=== PATIENT | male | born 1955 | race Caucasian/White ===

== ENCOUNTER 2020-08-05 02:38 | Inpatient (IN) | payer BC ==
[~2020-08-05] VITALS: Ht 175.3 cm; Wt 101.6 kg
[~2020-08-05 02:38] MED LIST: CYCL10; Citalopram HBr40 MG PO; IBUP200 PO; Simvastatin40 MG PO; TRAZ100 PO; ZESTORETIC 20-1 EACH PO
[2020-08-05 03:01] LABS: Source, Urine Clean Catch
[2020-08-05 03:02] LABS: BASOPHILS ABSOLUTE AUTO 0.02 K/mm3 (0.00-0.23); BASOPHILS PERCENT AUTO 0 % (0-2); EOSINOPHILS PERCENT AUTO 0 % (0-6); Hematocrit 33.7 % (37.0-53.0); Hemoglobin 11.2 g/dL (13.5-17.5); IMMATURE GRAN ABSOLUTE AUTO 0.09 K/mm3 (0.00-0.10); IMMATURE GRAN PERCENT AUTO 1 % (0-1); LYMPHOCYTES ABSOLUTE AUTO 0.49 K/mm3 (0.84-5.20); LYMPHOCYTES PERCENT AUTO 4 % (21-46); MONOCYTES ABSOLUTE AUTO 0.86 K/mm3 (0.16-1.47); MONOCYTES PERCENT AUTO 6 % (4-13); Mean Corpuscular HGB Conc 33.2 g/dL (31.5-36.5); Mean Corpuscular Volume 96 fL (80-100); Mean Platelet Volume 9.1 fL (9.1-12.4); NEUTROPHILS ABSOLUTE AUTO 12.63 K/mm3 (1.96-9.15); NEUTROPHILS PERCENT AUTO 90 % (41-73); Platelet Count 270 K/mm3 (150-400); RDW Coefficient Variation 13.6 % (11.7-14.2); RDW Standard Deviation 47.8 fL (35.1-46.3); White Blood Cell Count 14.09 K/mm3 (4.00-11.30)
[2020-08-05 03:03] LABS: Bilirubin, Urine Neg (Neg); Blood, Urine 5+ (Neg); Glucose Qualitative, Urine Neg (Neg); Ketones, Urine Neg (Neg); Leukocyte Esterase, Urine Neg (Neg); Nitrite, Urine Neg (Neg); Protein, Urine 2+ (Neg); Specific Gravity, Urine 1.025 (1.003-1.022); Urobilinogen, Urine NORM (Normal)
[2020-08-05 03:09] LABS: Appearance, Urine Clear (Clear); Color, Urine Yellow (P-Yellow)
[2020-08-05 03:10] LABS: Red Blood Cells, Urine 0-2 /hpf (0-2)
[2020-08-05 03:11] LABS: Amorphous Mod (0-Heavy); Bacteria Mod /hpf; Hyaline Casts 25-50 /lpf (0-2); Mucus Light (0-Heavy); Squamous Epithelial Cells Not Seen /hpf (Few)
[2020-08-05 03:12] LABS: Calcium Oxalate Crystals Few /hpf
[2020-08-05 03:16] LABS: International Normalized Ratio 1.02
[2020-08-05 03:19] LABS: U Amphetamine Screen Not Detected; U Barbituate Screen Not Detected; U Benzodiazapine Screen Not Detected; U Buprenorphine Screen Not Detected; U Cannabinoids Screen Not Detected; U Cocaine Screen Not Detected; U Methadone Screen Not Detected; U Methamphetamine Screen Not Detected; U Opiates Screen Not Detected; U Oxycodone Screen DETECTED; U Phencyclidine Screen Not Detected; U Propoxyphene Screen Not Detected
[2020-08-05 03:23] LABS: Alanine Aminotransfer (ALT/SGP 34 U/L (12-78); Albumin/Globulin Ratio 0.7 (0.8-1.8); Alk Phos 86 U/L (50-136); Anion Gap 14 mmol/L (6-16); Aspartate Aminotrans (AST/SGOT 72 U/L (12-37); Bilirubin, Total 0.7 mg/dL (0.1-1.0); Blood Urea Nitrogen 67 mg/dL (8-24); Bun/Creatinine Ratio 11.1 (12.0-20.0); CO2, Blood 18 mmol/L (21-32); Calcium, Blood 8.9 mg/dL (8.5-10.1); Chloride, Blood 101 mmol/L (98-108); Creatinine, Blood 6.05 mg/dL (0.60-1.20); Ethanol (Alcohol), Blood, Med <3 mg/dL; Globulin, Blood 4.2 g/dL (2.2-4.0); Glomerular Filtration Rate 10 (60-); Glucose, Blood 143 mg/dL (70-99); Potassium, Blood 4.4 mmol/L (3.5-5.5); Sodium, Blood 133 mmol/L (136-145); Total Protein, Blood 7.2 g/dL (6.4-8.2)
[2020-08-05 03:59] LABS: Base Excess Venous -7.7 mmol/L; Bicarbonate Venous 18.6 mmol/L (24.0-30.0); PCO2 Venous 39.4 mmHg (38-42); PO2 Venous 130 mmHg (38-42); pH Blood Venous 7.29 (7.34-7.37)
[2020-08-05 05:02] LABS: CPK Creatine Kinase 3047 U/L (39-308)
--- NOTE | 2020-08-05 06:49 | NUR ---
ADMISSION PT ADMITTED TO THE FLOOR FROM THE ED. PT IS AWAKE, SPEECH IS GARBLED, PT IS UNABLE TO ANSWER QUESTIONS, TREMORS, & TWITCHING NOTED. PT WAS ABLE TO STATE HIS BIRTHDAY BUT THEN WENT RIGHT BACK TO GARBLED SPEECH. SPO2 87-90 ON RA, PT PLACED ON 2 L O2 VIA NC. SC HEPARIN GIVEN PER EMAR, LR INFUSING @ 125 ML/HR. CONSULTED, HE CAME TO THE BEDSIDE AND ATTEMPTED TO SPEAK WITH THE PT BUT WAS UNABLE TO GET ANY ANSWERS FROM HIM. CPK & URIC ACID ORDERED PER HIS REQUEST. CHARGE NURSE IN THE ROOM TO ASSIST WITH ADMISSION. CALL LIGHT IN REACH, BED IN LOW POSITION, BED ALARM FOR SAFETY. BEDSIDE REPORT GIVEN TO DAY SHIFT RN.
[2020-08-05 07:29] LABS: Eosinophils-Raw #,Urine 0
[2020-08-05 07:42] LABS: Uric Acid, Blood 13.5 mg/dL (3.5-7.2)
[2020-08-05 08:56] LABS: Source, Urine Catheter
[2020-08-05 09:06] LABS: Appearance, Urine Clear (Clear); Bilirubin, Urine Neg (Neg); Blood, Urine 5+ (Neg); Color, Urine Yellow (P-Yellow); Glucose Qualitative, Urine Neg (Neg); Ketones, Urine Neg (Neg); Leukocyte Esterase, Urine Neg (Neg); Nitrite, Urine Neg (Neg); Protein, Urine 2+ (Neg); Specific Gravity, Urine 1.025 (1.003-1.022); Urobilinogen, Urine NORM (Normal)
[2020-08-05 09:30] LABS: Hyaline Casts 0-2 /lpf (0-2)
[2020-08-05 09:31] LABS: White Blood Cells, Urine 0-2 /hpf (0-5)
[2020-08-05 09:39] LABS: Amorphous Light (0-Heavy); Bacteria Few /hpf; Mucus Light (0-Heavy); Red Blood Cells, Urine 0-2 /hpf (0-2); Squamous Epithelial Cells Few /hpf (Few)
[2020-08-05 16:10] LABS: Bun/Creatinine Ratio 17.4 (12.0-20.0); Calcium, Blood 8.8 mg/dL (8.5-10.1); Creatinine, Blood 3.34 mg/dL (0.60-1.20)
--- NOTE | 2020-08-05 16:36 | NUR ---
PT SNORING AND HAVING APNIC EPISODES WITH HEART DECRESING TO 40-50'S; NOTIIFED DR REDMOND AT APPROX 1505; NEW ORDERS FOR CPAP/BIPAP PROTOCOL. NOTIFIED RT; PLACED BIPAP AT 14/7 WITH 2L BLEEDING. 1620- PT HR CONTINUES TO DECREASE 30-40 WITH APNIC EPISODES, NOTIFIED RT, RT TO ROOM TO ADJUST SETTINGS. NOTIFIED DR REDMOND, NO NEW ORDER. WILL CONTINUE TO [facility].
--- NOTE | 2020-08-05 17:11 | NUR ---
RESIDENCE: Home - [address] [place] [address] [id number]: Tiffany Unger [phone] Update 08/05/20 1711: Attempted twice to visit pt. in room today, without success. Pt. sleeping. No planned discharge date at this time. Will reach out to pt. and Tiffany tomorrow to discuss care coordination.
--- NOTE | 2020-08-05 20:02 | NUR ---
SHIFT SUMMARY THIS AM PT ALERT, STATES FIRST NAME AND ; UNABLE TO ANSWER DATE/TIME, EVENT OR PLACE. TREMORS NOTED T/O ENTIRE BODY, TWITCHING NOTED AT TIMES; PT ATTEMPTS TO FOLLOW MAJORITY OF COMMANDS; SOME COMMANDS NEED TO BE REPEARTED. PT APPEARS UNCOORDINATED; AT TIMES MOVEMENTS DO NOT MATCH COMMANDS; WHEN PT ATTEMPTS TO ITCH NOSE, HE ENDS UP HITTING EAR. APPEARS TO HAVE RECEPTIVE AND EXPRESSIVE APHASIA. WHEN ASSESSING FOR VISUAL DISTURBACNES, FOR LEFT PERIPHERAL, THIS RN HELD UP 2 FINGER AND WHEN ASKED PT STATES HE SEE 12 FINGERS, THEN LAUGHS AND TURNS TO HAND AND STATES 2 FINGERS. MENTATION IMPROVE SLIGHTLY T/O DAY, PT STATES FULL NAME AND DATE OF , CONTINUES TO BE UNABLE TO ANSWER EVENT, DATE, AND PLACE. NO TREMORS NOTED WHEN PT IS SLEEPING. JEWELRY JOBBER EQUAL BUT WEAK; PLANTAR FLEX/EXTEN EQUAL BUT WEAK. PT AGGITATED THIS AM, STATING THAT HE NEED TO VOID; PT ATTEMPTED MULTIPLE TIMES WITH NO OUTPUT; DURING RENAL ULTRA SOUND, THEN NOTED RETENTION, NOTIFIED DR REDMOND, NEW ORDER FOR UMANA CATHETER AND LIDOCAIN URO JET. UMANA IN PLACE PATENT AND DRAINING. PT ON 2L O2 VIA NC THIS AM, WHEN PT FELL ASLEEP HE STARTED SNORING AND HAVING APNIC EPISODE, DURING THE APNIC EPISODES PT HR WOULD DECREASED TO 30-50'S, DR REDMOND NOTIFIED, ORDERS FOR CPAP/BIPAP PROTOCOL. PT REPORTS BACK PAIN THIS AM, NOTIFIED DR REDMOND, NEW ORDER FOR LIDOCAINE PATCHES, PLACED TO LOWER BACK. THIS AFTERNOON PT APPEARS TO BE TRYING TO COUGH SOMETHING UP BUT UNABLE, SUCTIONED, NOTIFIED DR REDMOND REGARDING CONCERN THAT PT IN UNABLE TO PROTECT AIRWAY, NEW ORDER FOR SPPECH THERAPY EVAL. ORAL COMPELTED WITH VITAL SIGNS DURING SHIFT. OTHER VSS. REPORT GIVEN TO ONCOMING RN.
[2020-08-06 03:46] LABS: Hematocrit 28.9 % (37.0-53.0)
[2020-08-06 04:06] LABS: Albumin, Blood 2.4 g/dL (3.4-5.0); Anion Gap 9 mmol/L (6-16); Blood Urea Nitrogen 44 mg/dL (8-24); Bun/Creatinine Ratio 26.3 (12.0-20.0); CO2, Blood 24 mmol/L (21-32); Calcium, Blood 8.6 mg/dL (8.5-10.1); Chloride, Blood 109 mmol/L (98-108); Creatinine, Blood 1.67 mg/dL (0.60-1.20); Glomerular Filtration Rate 44 (60-); Glucose, Blood 82 mg/dL (70-99); Magnesium, Blood 1.8 mg/dL (1.6-2.4); Phosphorus, Blood 2.3 mg/dL (2.5-4.9); Potassium, Blood 4.3 mmol/L (3.5-5.5); Sodium, Blood 142 mmol/L (136-145)
--- NOTE | 2020-08-06 05:54 | NUR ---
PATIENT HAS HAD IMPROVED MENTATION BEGINING OF SHIFT PATIENT WAS EXTREMELY TREMOUSLY WITH ONLY ALERTNESS TO SELF ONLY, THIS MORNING PATIENT IS ONLY EXHIBITING TREMORS WITH MOVEMENT, FOLLOWS COMMANDS AND ALERT AND ORIENTATED MINUS MONTH BUT WAS ABLE TO TELL ME 2020, AND NIKOLAS BROWN WAS PRESIDENT. SLEPT THROUGH MOST OF THE NIGHT AND KEPT IS BIPAP ON. INITIALLY HAD A RLE DRIFT WITH BEGINING OF SHIFT NEURO CHANGE, THAT HAS RESOLVED AT 0400 NEURO CHECK. UMANA CATETHER IS PATENT, STAT LOCK IN PLACE AND UMANA CATETHER CARE PROVIDED THIS SHIFT. AWAITING NEW ORDERS OF IV FLUIDS FROM PHARMACY THIS AM, AND WILL CONTINUE TO MONITOR PATIENT.
--- NOTE | 2020-08-06 07:48 | NUR ---
Pt is sleeping with bipap on at time of bedside report. AT this time, awakens easily, bipap removed for oral care. He is alert, oriented to person, birthday, month/year/season, location (hospital) and following directions. STruggles to remember city name, how long exactly he has been here, but is also cognisant of the deficits in his memory. States he is in no pain, but overall "uncomfortable" because he is used to his own bed, not this one. Falls asleep easily after conversation. Bipap replaced when sleeping.
--- NOTE | 2020-08-06 08:43 | NUR ---
Assisted to turn on right side for placement of lidocaine patches. Bipap removed as pt is more awake now. He seems quite painful to heparin sc injection, placement of cool lidocaine patches, and alcohol swab ( cold ) to abdomen before injection.
--- NOTE | 2020-08-06 09:53 | NUR ---
Stated he needed to get up to commode. Very shaky, arms and legs trembling. Denies headache, states anxiety with nurse in room while using BSC. No hallucinations.
--- NOTE | 2020-08-06 11:15 | NUR ---
Assisted from recliner chair back to bed; I spoke with his Tiffany on the phone, updated her on pt situation, and the pt also spoke with her on the phone. Asked if the pt drinks anything that might lead to dehydration, and she said "alcohol, occasionally". I told her that the pt had told me that he drinks daily, and she sounded suprised when she said, "OH!". Pt stated that he drinks "a couple of Hard Rafael's every day".
--- NOTE | 2020-08-06 12:01 | NUR ---
Bladder training started at this time, in preparation for discontinuation of weir catheter. Dr. Person here, states pt can go to medical floor.
--- NOTE | 2020-08-06 13:01 | NUR ---
Tremors seem to be less than before. Assisted to bedside commode; still having tremors, but less. Drinking lots of ice water; 600 cc so far today. Loose stool this time, on bedside commode. Neuro status is stable, unchaged from previous assessment this morning.
--- NOTE | 2020-08-06 15:26 | NUR ---
Bladder training done, flomax given and Waggoner dc'd. Assisted to BSC to have another loose brown bowel movement. Pt is calling with call light for assistance appropriately.
--- NOTE | 2020-08-06 16:12 | NUR ---
Telephone report given to Kanika Cerna at this time. The pt will be moved to medical floor, room 310.
--- NOTE | 2020-08-06 16:46 | NUR ---
Notified Ayesha Ferguson at time of transfer that pt was moving from U 10 to 311. correction on room number : 311. Also notified Fern Carey that the pt has an order for continuous oximetry as well as overnight sleep study tonight.
--- NOTE | 2020-08-06 17:39 | NUR ---
SHIFT SUMMARY PT IS AO. PT DENIES PAIN, N/V, SOB. PT TRANSFERRED FROM PCU AT APPROXIMATELY 1530. PT IS SLEEPING IN ROOM. PT HAS MODERATE APPETITE FOR DINNER. PLAN IS TO MONITOR KIDNEY FUNCTION AND ORIENTATION. PT HAS NOT HAD VISITORS THIS VERENICE. PT IS IN ROOM, CALL LIGHT IN REACH, BED IN LOW POSITION.
--- NOTE | 2020-08-07 05:35 | NUR ---
SHIFT SUMMARY PATIENT ALERT AND ORIENTED X3. WAS MEDICATED PER EMAR FOR PAIN. NO COMPLAINTS OF SHORTNESS OF BREATH. SLEEP STUDY COMPLETED OVERNIGHT. IV PATENT AND INFUSING. BED IN LOWEST POSITION WITH WHEELS LOCKED AND ALARM ON. CALL LIGHT WITHIN REACH. REPORT GIVEN TO ONCOMING RN.
[2020-08-07 06:04] LABS: Hematocrit 28.6 % (37.0-53.0); Hemoglobin 9.8 g/dL (13.5-17.5)
[2020-08-07 06:36] LABS: Albumin, Blood 2.4 g/dL (3.4-5.0); Anion Gap 7 mmol/L (6-16); Blood Urea Nitrogen 30 mg/dL (8-24); Bun/Creatinine Ratio 30.2 (12.0-20.0); CO2, Blood 27 mmol/L (21-32); Calcium, Blood 8.1 mg/dL (8.5-10.1); Chloride, Blood 108 mmol/L (98-108); Creatinine, Blood 0.99 mg/dL (0.60-1.20); Glomerular Filtration Rate >60 (60-); Glucose, Blood 92 mg/dL (70-99); Magnesium, Blood 1.5 mg/dL (1.6-2.4); Phosphorus, Blood 2.1 mg/dL (2.5-4.9); Potassium, Blood 3.3 mmol/L (3.5-5.5); Sodium, Blood 142 mmol/L (136-145)
[2020-08-07] MEDS ORDERED: TAMS.4ER PO (14:02)
[2020-08-07] MEDS ORDERED: AMLO10 PO (14:02)
--- NOTE | 2020-08-07 14:40 | NUR ---
DISCHARGE NOTE PT IS AOX4. PT IV REMOVED BY THIS RN PER DOCUMENTATION. DC INSTRUCTIONS AND MEDICATIONS REVIEWED WITH PT WHO VERBALIZED UNDERSTANDING. PT DRESSED SELF IN HOME CLOTHING AND SCRUB BOTTOM PANTS. PT REFUSED WHEELCHAIR FOR DC. PT GATHERED BELONGINGS. DC VOLUNTEER WALKED WITH PT OFF UNIT. PT HAS LEFT BUILDING IN PRIVATE VEHICLE WITH BELONGINGS PRESENT.
--- NOTE | 2020-08-08 16:39 | NUR ---
Update 08/07/20: Pt. appropriate for discharge. Scheduled for a F/U visit with Dr. Liu on 08/12/20. Per Dr. Person, pt. should be scheduled for sleep study as soon as possible. Referral placed and I contacted the sleep lab to determine what they will need. Notes and requested documents sent to [facility]. [facility]AY team will follow-up with pt. to ensure he is scheduled with the sleep lab.
== END 2020-08-07 14:40 | disposition home or self-care (01) | DRG 682 ==
LOC: ER 02:38 → PCU 04:37 → MEDS 08-06 16:28
PROVIDERS: Emergency Medicine; Internal Medicine; Internal Medicine Nephrology; ADMIT Internal Medicine
PROC: 0T9B70Z Drainage of Bladder with Drainage Device, Via Natural or Artificial Opening (ICD-10-PCS; principal; 2020-08-06)
DX: N17.9 Acute kidney failure, unspecified (principal); G93.41 Metabolic encephalopathy; E87.2 Acidosis; E87.1 Hypo-osmolality and hyponatremia; M62.82 Rhabdomyolysis; R56.9 Unspecified convulsions; D72.829 Elevated white blood cell count, unspecified; R33.9 Retention of urine, unspecified; E78.5 Hyperlipidemia, unspecified; G47.33 Obstructive sleep apnea (adult) (pediatric); E83.39 Other disorders of phosphorus metabolism; I12.9 Hypertensive chronic kidney disease with stage 1 through stage 4 chronic kidney disease, or unspecified chronic kidney disease; D63.1 Anemia in chronic kidney disease; N18.9 Chronic kidney disease, unspecified; Z79.899 Other long term (current) drug therapy
CPT/HCPCS: 36415; 51703; 70450; 71045; 76770; 80048; 80053; 80069; 81001; 82550; 82570; 82803; 82947; 83690; 83735; 84153; 84300; 84550; 85014; 85018; 85025; 85610; 87086; 87205; 92523; 92610; 93005; 93010; 94660; 94667; 94762; 96372-59; 96374; 99285-25; A9270; G0480; J1644; J2060; J7030; J7060; J7120

== ENCOUNTER → 2020-09-24 | Outpatient (CLI) | payer BC ==
[~2020-09-24] MED LIST changes: +AMLO10 PO; +TAMS.4ER PO
[2020-09-24 13:17] LABS: BASOPHILS ABSOLUTE AUTO 0.04 K/mm3 (0.00-0.23); BASOPHILS PERCENT AUTO 1 % (0-2); EOSINOPHILS ABSOLUTE AUTO 0.07 K/mm3 (0.00-0.68); EOSINOPHILS PERCENT AUTO 1 % (0-6); Hematocrit 38.4 % (37.0-53.0); IMMATURE GRAN ABSOLUTE AUTO 0.03 K/mm3 (0.00-0.10); IMMATURE GRAN PERCENT AUTO 0 % (0-1); LYMPHOCYTES ABSOLUTE AUTO 1.51 K/mm3 (0.84-5.20); LYMPHOCYTES PERCENT AUTO 19 % (21-46); MONOCYTES ABSOLUTE AUTO 0.75 K/mm3 (0.16-1.47); MONOCYTES PERCENT AUTO 9 % (4-13); Mean Corpuscular HGB 32.3 pg (26.0-34.0); Mean Corpuscular HGB Conc 33.9 g/dL (31.5-36.5); Mean Corpuscular Volume 95 fL (80-100); Mean Platelet Volume 9.1 fL (9.1-12.4); NEUTROPHILS ABSOLUTE AUTO 5.66 K/mm3 (1.96-9.15); NEUTROPHILS PERCENT AUTO 70 % (41-73); Platelet Count 331 K/mm3 (150-400); RDW Coefficient Variation 13.9 % (11.7-14.2); RDW Standard Deviation 48.2 fL (35.1-46.3); Red Blood Cell Count 4.03 M/mm3 (4.30-5.90); White Blood Cell Count 8.06 K/mm3 (4.00-11.30)
[2020-09-24 13:29] LABS: Alanine Aminotransfer (ALT/SGP 31 U/L (12-78); Albumin/Globulin Ratio 0.7 (0.8-1.8); Alk Phos 109 U/L (40-126); Anion Gap 13 mmol/L (6-16); Aspartate Aminotrans (AST/SGOT 23 U/L (12-37); Bilirubin, Total 0.5 mg/dL (0.1-1.0); Blood Urea Nitrogen 13 mg/dL (8-24); Bun/Creatinine Ratio 15.7 (12.0-20.0); CO2, Blood 24 mmol/L (21-32); Calcium, Blood 8.7 mg/dL (8.5-10.1); Chloride, Blood 101 mmol/L (98-108); Creatinine, Blood 0.83 mg/dL (0.60-1.20); Globulin, Blood 4.2 g/dL (2.2-4.0); Glomerular Filtration Rate >60 (60-); Glucose, Blood 85 mg/dL (70-99); Potassium, Blood 2.8 mmol/L (3.5-5.5); Sodium, Blood 138 mmol/L (136-145); Total Protein, Blood 7.2 g/dL (6.4-8.2)
== END | disposition home or self-care (01) ==
LOC: LAB EV 13:10 → LAB SHORT 13:10
PROVIDERS: Chiropractor
DX: R60.0 Localized edema (principal); R21 Rash and other nonspecific skin eruption
CPT/HCPCS: 80053; 83880; 85025; 87040

== ENCOUNTER → 2020-09-24 | Outpatient (CLI) | payer BC | LOC: LAB 13:34 → LAB SHORT 13:34 | DX: R21 Rash and other nonspecific skin eruption (principal) | CPT/HCPCS: 87070; 87075; 87205 ==

== ENCOUNTER 2021-10-10 12:46 | Inpatient (IN) | payer MEDICARE, BC ==
[~2021-10-10] VITALS: Ht 175.3 cm; Wt 98.6 kg
[2021-10-10 13:14] LABS: BASOPHILS ABSOLUTE AUTO 0.15 K/mm3 (0.00-0.23); BASOPHILS PERCENT AUTO 1 % (0-2); EOSINOPHILS ABSOLUTE AUTO 0.01 K/mm3 (0.00-0.68); EOSINOPHILS PERCENT AUTO 0 % (0-6); Hemoglobin 12.4 g/dL (13.5-17.5); IMMATURE GRAN ABSOLUTE AUTO 0.23 K/mm3 (0.00-0.10); IMMATURE GRAN PERCENT AUTO 1 % (0-1); LYMPHOCYTES ABSOLUTE AUTO 0.89 K/mm3 (0.84-5.20); LYMPHOCYTES PERCENT AUTO 4 % (21-46); MONOCYTES ABSOLUTE AUTO 2.38 K/mm3 (0.16-1.47); MONOCYTES PERCENT AUTO 11 % (4-13); Mean Corpuscular HGB 32.4 pg (26.0-34.0); Mean Corpuscular HGB Conc 34.4 g/dL (31.5-36.5); Mean Corpuscular Volume 94 fL (80-100); Mean Platelet Volume 9.1 fL (9.1-12.4); NEUTROPHILS ABSOLUTE AUTO 18.53 K/mm3 (1.96-9.15); NEUTROPHILS PERCENT AUTO 84 % (41-73); Platelet Count 352 K/mm3 (150-400); RDW Coefficient Variation 14.1 % (11.7-14.2); RDW Standard Deviation 48.2 fL (35.1-46.3); Red Blood Cell Count 3.83 M/mm3 (4.30-5.90); White Blood Cell Count 22.19 K/mm3 (4.00-11.30)
[2021-10-10 13:26] LABS: Albumin, Blood 2.6 g/dL (3.4-5.0); Albumin/Globulin Ratio 0.5 (0.8-1.8); Bilirubin, Total 0.7 mg/dL (0.1-1.0); Bun/Creatinine Ratio 17.6 (12.0-20.0); Calcium, Blood 8.1 mg/dL (8.5-10.1); Creatinine, Blood 6.72 mg/dL (0.60-1.20); Magnesium, Blood 2.7 mg/dL (1.6-2.4); Potassium, Blood 4.8 mmol/L (3.5-5.5); Total Protein, Blood 7.6 g/dL (6.4-8.2)
[2021-10-10] MEDS ORDERED: LISINOPRIL-HCT1 EAC1 PO (14:14)
[2021-10-10] MEDS ORDERED: CITALOPRAM HBR40 M8 PO (14:14)
[2021-10-10 15:16] LABS: Source, Urine Foley catheter
[2021-10-10 15:23] LABS: Appearance, Urine Hazy (Clear); Blood, Urine 1+ (Neg); Color, Urine Amber (P-Yellow); Glucose Qualitative, Urine Neg (Neg); Ketones, Urine 1+ (Neg); Leukocyte Esterase, Urine 1+ (Neg); Nitrite, Urine Neg (Neg); Protein, Urine 2+ (Neg); Specific Gravity, Urine 1.025 (1.003-1.022); Urobilinogen, Urine NORM (Normal)
[2021-10-10 15:34] LABS: Bilirubin, Urine 2+ (Neg)
[2021-10-10 15:36] LABS: Amorphous Light (0-Heavy); Bacteria Mod /hpf; Hyaline Casts 0-2 /lpf (0-2); Squamous Epithelial Cells Rare /hpf (Few)
[2021-10-10 16:01] LABS: Influenza A, PCR NEGATIVE (NEGATIVE); Influenza B, PCR NEGATIVE (NEGATIVE); Resp Syncytial Virus, PCR NEGATIVE (NEGATIVE); SARS-Cov-2 (COVID-19) PCR, MMC NEGATIVE (NEGATIVE)
[2021-10-10 16:13] LABS: Albumin, Blood 2.2 g/dL (3.4-5.0); Anion Gap 15 mmol/L (6-16); Blood Urea Nitrogen 110 mg/dL (8-24); CO2, Blood 15 mmol/L (21-32); CPK Creatine Kinase 870 U/L (39-308); Calcium, Blood 7.4 mg/dL (8.5-10.1); Chloride, Blood 107 mmol/L (98-108); Creatinine, Blood 6.12 mg/dL (0.60-1.20); Glomerular Filtration Rate 10 (60-); Glucose, Blood 114 mg/dL (70-99); Phosphorus, Blood 6.8 mg/dL (2.5-4.9); Potassium, Blood 4.5 mmol/L (3.5-5.5); Sodium, Blood 137 mmol/L (136-145)
[2021-10-10 16:18] LABS: Bicarbonate Venous 14.4 mmol/L (24.0-30.0); PCO2 Venous 31.8 mmHg (38-42); pH Blood Venous 7.24 (7.34-7.37)
[2021-10-10 16:33] LABS: Creatine Kinase MB 26.9 ng/mL (0.0-3.6); Creatine Kinase MB Index 3.1 (0.0-4.0)
--- NOTE | 2021-10-10 18:58 | NUR ---
SUMMARY. PT ARRIVED AT 1834, TEMP OF 97.6, 97.0 KG PT ON RA, LEVO ON 4MCG, BICARB GTT AT 150ML/HR. 1400ML OF URINE EMPTIED, PHARMACY NOTIFIED OF MISSING FLAGYL. REPORTING OFF TO TRAFFIC COURT REFEREE RN.
[2021-10-11 04:22] LABS: BASOPHILS ABSOLUTE AUTO 0.04 K/mm3 (0.00-0.23); BASOPHILS PERCENT AUTO 0 % (0-2); EOSINOPHILS ABSOLUTE AUTO 0.03 K/mm3 (0.00-0.68); EOSINOPHILS PERCENT AUTO 0 % (0-6); Hematocrit 30.4 % (37.0-53.0); Hemoglobin 10.7 g/dL (13.5-17.5); IMMATURE GRAN ABSOLUTE AUTO 0.18 K/mm3 (0.00-0.10); IMMATURE GRAN PERCENT AUTO 1 % (0-1); LYMPHOCYTES ABSOLUTE AUTO 0.85 K/mm3 (0.84-5.20); LYMPHOCYTES PERCENT AUTO 6 % (21-46); MONOCYTES ABSOLUTE AUTO 1.54 K/mm3 (0.16-1.47); MONOCYTES PERCENT AUTO 10 % (4-13); Mean Corpuscular HGB 31.9 pg (26.0-34.0); Mean Corpuscular HGB Conc 35.2 g/dL (31.5-36.5); Mean Corpuscular Volume 91 fL (80-100); Mean Platelet Volume 8.7 fL (9.1-12.4); NEUTROPHILS ABSOLUTE AUTO 12.31 K/mm3 (1.96-9.15); NEUTROPHILS PERCENT AUTO 82 % (41-73); Platelet Count 285 K/mm3 (150-400); RDW Coefficient Variation 13.6 % (11.7-14.2); RDW Standard Deviation 45.8 fL (35.1-46.3); Red Blood Cell Count 3.35 M/mm3 (4.30-5.90); White Blood Cell Count 14.95 K/mm3 (4.00-11.30)
[2021-10-11 04:41] LABS: Magnesium, Blood 1.9 mg/dL (1.6-2.4)
[2021-10-11 05:11] LABS: Albumin, Blood 2.1 g/dL (3.4-5.0); Anion Gap 10 mmol/L (6-16); Blood Urea Nitrogen 79 mg/dL (8-24); Bun/Creatinine Ratio 28.4 (12.0-20.0); CO2, Blood 26 mmol/L (21-32); Chloride, Blood 105 mmol/L (98-108); Creatinine, Blood 2.78 mg/dL (0.60-1.20); Glomerular Filtration Rate 24 (60-); Glucose, Blood 140 mg/dL (70-99); Potassium, Blood 3.3 mmol/L (3.5-5.5); Sodium, Blood 141 mmol/L (136-145)
[2021-10-11 05:13] LABS: Phosphorus, Blood 3.6 mg/dL (2.5-4.9)
--- NOTE | 2021-10-11 06:27 | NUR ---
Summary. Pt rested in bed throughout shift. Alert and oriented, on room air. Levophed infusing at 6 mcg/min, NS tko, NS 100 ml/hr. Waggoner catheter in place, 2200 out this shift. VS stable throughout shift, see shift assessment for futher details. Will continue to monitor and report off to dayshift RN.
--- NOTE | 2021-10-11 08:46 | NUR ---
took over care of pt at 0700, pt on ra and 6 of levo at the time.
--- NOTE | 2021-10-11 18:05 | NUR ---
TRANSFER OF CARE RECEIVED PT AFTER REPORT FROM ICU NURSE. PT IS A/Ox4 AND FOLLOWS DIRECTIONS FROM STAFF APPROPIATELY. PT MAINTAINS SP02 >93% ON RA WITH NO SIGNS OF SOB OR DYSPNEA NOTED. PT DOES NOT COMPLAIN OF N/V OR CP/PRESSURE AT THIS TIME. PT COMPLAINS OF RLQ ABD PAIN AND IS MEDICATED PER EMAR. NO NEW DECREASE IN SENSATION OR TINGLING NOTED. I HAVE REVEIWED THE ICU NURSES SHIFT ASSESSMENT FROM THIS AM AND AGREE WITH HER FINDINGS. GEOVANY BACA
--- NOTE | 2021-10-12 05:59 | NUR ---
SHIFT SUMMARY NO ACUTE CHANGES THIS SHIFT. PT SLEPT MOST OF NIGHT. RA. C/O OF ABD, MEDICATED PER EMAR X1. UMANA CATHETER DRAINING TO GRAVITY. NO BM THIS SHIFT. ABX, FLUIDS, AND K+ INFUSED PER EMAR. CALL LIGHT IN REACH.
[2021-10-12 07:17] LABS: BASOPHILS ABSOLUTE AUTO 0.07 K/mm3 (0.00-0.23); BASOPHILS PERCENT AUTO 0 % (0-2); EOSINOPHILS ABSOLUTE AUTO 0.01 K/mm3 (0.00-0.68); EOSINOPHILS PERCENT AUTO 0 % (0-6); Hematocrit 35.9 % (37.0-53.0); Hemoglobin 12.3 g/dL (13.5-17.5); IMMATURE GRAN ABSOLUTE AUTO 0.31 K/mm3 (0.00-0.10); IMMATURE GRAN PERCENT AUTO 2 % (0-1); LYMPHOCYTES ABSOLUTE AUTO 1.39 K/mm3 (0.84-5.20); LYMPHOCYTES PERCENT AUTO 9 % (21-46); MONOCYTES ABSOLUTE AUTO 1.59 K/mm3 (0.16-1.47); MONOCYTES PERCENT AUTO 10 % (4-13); Mean Corpuscular HGB 32.1 pg (26.0-34.0); Mean Corpuscular HGB Conc 34.3 g/dL (31.5-36.5); Mean Corpuscular Volume 94 fL (80-100); Mean Platelet Volume 8.7 fL (9.1-12.4); NEUTROPHILS ABSOLUTE AUTO 12.53 K/mm3 (1.96-9.15); NEUTROPHILS PERCENT AUTO 79 % (41-73); Platelet Count 292 K/mm3 (150-400); RDW Standard Deviation 47.9 fL (35.1-46.3); Red Blood Cell Count 3.83 M/mm3 (4.30-5.90)
[2021-10-12 07:37] LABS: Albumin, Blood 2.2 g/dL (3.4-5.0); Albumin/Globulin Ratio 0.5 (0.8-1.8); Bilirubin, Total 0.6 mg/dL (0.1-1.0); Bun/Creatinine Ratio 39.6 (12.0-20.0); Calcium, Blood 8.4 mg/dL (8.5-10.1); Creatinine, Blood 1.06 mg/dL (0.60-1.20); Globulin, Blood 4.4 g/dL (2.2-4.0); Magnesium, Blood 1.4 mg/dL (1.6-2.4); Phosphorus, Blood 1.8 mg/dL (2.5-4.9); Potassium, Blood 4.3 mmol/L (3.5-5.5); Total Protein, Blood 6.6 g/dL (6.4-8.2)
--- NOTE | 2021-10-12 10:50 | NUR ---
WHEN LOOKING AT THE CHART, THE PT'S MAG WAS LOW AT 1.4. DR. MAC INFORMED OF THE LOW LABE VALUE WHERE HE ORDERED 1G OF MAG VIA IV.
[2021-10-12 12:57] LABS: Adenovirus F 40/41 Not Detected (NOT DETECT); Astrovirus Not Detected (NOT DETECT); Campylobacter Sp Not Detected (NOT DETECT); Cryptosporidium Not Detected (NOT DETECT); Cyclospora Cayetanensis Not Detected (NOT DETECT); E. Coli O157 Not Detected (NOT DETECT); Entamoeba Histolytica Not Detected (NOT DETECT); Enteroaggregative E. coli-EAEC Not Detected (NOT DETECT); Enteropathogenic E. coli-EPEC Not Detected (NOT DETECT); Enterotoxigenic E. coli-ETEC Not Detected (NOT DETECT); Giardia Lamblia Not Detected (NOT DETECT); Norovirus GI/GII Not Detected (NOT DETECT); Plesiomonas Shigelloides Not Detected (NOT DETECT); Rotavirus A Not Detected (NOT DETECT); Salmonella Sp Not Detected (NOT DETECT); Sapovirus Not Detected (NOT DETECT); Shiga Toxin-prod E. coli-STEC Not Detected (NOT DETECT); Shigella/Enteroin E. coli-EIEC Not Detected (NOT DETECT); Vibrio Cholerae Not Detected (NOT DETECT); Vibrio Sp Not Detected (NOT DETECT); Yersinia Enterocolitica Not Detected (NOT DETECT)
--- NOTE | 2021-10-12 13:42 | NUR ---
Notified Dr Keating of positive gi panel, new orders entered.
--- NOTE | 2021-10-12 15:47 | NUR ---
SPOKE WITH PT'S (TARUN) AND UPDATED HER ABOUT THE PT'S CONDITION WELL HIS PLAN OF CARE. ANSWERED ALL HER QUESTIONS. TARUN STATED SHE WOULD CALL BACK TOMRROW MORNING
--- NOTE | 2021-10-12 19:39 | NUR ---
SHIFT SUMMARY PT IS A/Ox4 AND FOLLOWS DIRECTIONS FROM STAFF. PT WAS UPGRADED TO A CLEAR LIQUIDS DEIT THIS SHIFT AND SEEMS TO BE TOLERATING WATER/ICE WELL. PT STILL COMPLAINS OF ABD PAIN THAT IS BEING MANAGED PER EMAR. PT MAINTAINS SP02 >93% ON RA WITH NO SIGNS OF SOB OR DYSPNEA NOTED. PT HAD A LARGE LIQUID BM THIS PM THAT LEAD TO A STOOL SAMPLE TESTING POSTIVE FOR C.DIFF. PT WAS PUT INTO CONTACT PRECAUTIONS. PT IS ABLE TO AMBULATE TO THE BSC WITH A SBA. BP HAS BEEN STABLE T/O THE SHIFT WELL HR. NADN, VSS
--- NOTE | 2021-10-13 06:32 | NUR ---
SHIFT SUMMARY PT ALERT AND ORIENTED X4. BP STABLE. AFEBRILE. SR 70-80'S. ON RA SATS OVER 92%. CALLS APPROPRIATELY, COOPERATIVE TO CARE. NS INFUSING AT 100ML/HR. UMANA IN PLACE DRAINING TO GRAVITY. C/O 08/30 RLQ ABDOMINAL PAIN, MEDICATED PER EMAR. IN BED SLEEPING WITH CALL ALARM AT SIDE, WILL CONTINUE TO MONITOR UNTIL REPORT GIVEN
[2021-10-13 07:45] LABS: Hematocrit 32.9 % (37.0-53.0); Hemoglobin 10.9 g/dL (13.5-17.5)
[2021-10-13 08:01] LABS: Anion Gap 6 mmol/L (6-16); Blood Urea Nitrogen 29 mg/dL (8-24); Bun/Creatinine Ratio 32.7 (12.0-20.0); CO2, Blood 25 mmol/L (21-32); Calcium, Blood 8.4 mg/dL (8.5-10.1); Chloride, Blood 108 mmol/L (98-108); Creatinine, Blood 0.89 mg/dL (0.60-1.20); Glomerular Filtration Rate 95 (60-); Glucose, Blood 94 mg/dL (70-99); Magnesium, Blood 1.4 mg/dL (1.6-2.4); Phosphorus, Blood 1.9 mg/dL (2.5-4.9); Potassium, Blood 3.9 mmol/L (3.5-5.5); Sodium, Blood 139 mmol/L (136-145)
[2021-10-13 08:03] LABS: Vancomycin, Trough 4.7 ug/mL (5.0-10.0)
--- NOTE | 2021-10-13 17:20 | NUR ---
TRANSFER OF CARE REPORT GAVE REPORT TO MED FLOOR NURSE, ANSWERED ALL QUESTIONS THOROUGHLY. PT IS A/Ox4 AND FOLLOWS DIRECTIONS APPROPRIATELY. PT MAINTAINS SPO2 >95 ON RA. VSS, NADN ON DURING OR UPON COMPLETION OF TRANSFER.
--- NOTE | 2021-10-13 18:05 | NUR ---
PATIENT TRANSFERRED FROM PCU 19 TO ROOM 328, REPORTS RECEIVED FROM VINNIE CHAVES. PATIENT ORIENTED TO ROOM AND USE OF CALL LIGHT. ABLE TO TRANSFER FROM WC TO BED WITH SBA. PATIENT IS A/OX4, COOPERATIVE WITH CARE. REPORTS PAIN DOWN TO A 5/10 AFTER RECEINING MORPHINE IN PCU. TOLERATING CLEAR LIQUID DIET. UMANA PATENT AND DRAINING TO GRAVITY. DENIES ANY NEEDS AT THIS TIME.
[2021-10-14 04:30] LABS: Hematocrit 33.8 % (37.0-53.0); Hemoglobin 11.6 g/dL (13.5-17.5); Mean Corpuscular HGB 32.1 pg (26.0-34.0); Mean Corpuscular HGB Conc 34.3 g/dL (31.5-36.5); Mean Corpuscular Volume 94 fL (80-100); Mean Platelet Volume 8.8 fL (9.1-12.4); Platelet Count 265 K/mm3 (150-400); RDW Coefficient Variation 13.3 % (11.7-14.2); RDW Standard Deviation 45.9 fL (35.1-46.3); Red Blood Cell Count 3.61 M/mm3 (4.30-5.90); White Blood Cell Count 14.86 K/mm3 (4.00-11.30)
[2021-10-14 04:56] LABS: Albumin/Globulin Ratio 0.6 (0.8-1.8); Bilirubin, Total 0.5 mg/dL (0.1-1.0); Bun/Creatinine Ratio 24.1 (12.0-20.0); Calcium, Blood 8.1 mg/dL (8.5-10.1); Creatinine, Blood 0.75 mg/dL (0.60-1.20); Globulin, Blood 3.6 g/dL (2.2-4.0); Magnesium, Blood 1.5 mg/dL (1.6-2.4); Phosphorus, Blood 2.2 mg/dL (2.5-4.9); Potassium, Blood 3.4 mmol/L (3.5-5.5); Total Protein, Blood 5.6 g/dL (6.4-8.2)
[2021-10-14 04:58] LABS: BAND PERCENT MAN 10 % (0-8); BASOPHILS PERCENT MAN 0 % (0-2); EOSINOPHILS PERCENT MAN 0 % (0-6); LYMPHOCYTES ABSOLUTE MAN 1.93 K/mm3 (0.84-5.20); LYMPHOCYTES PERCENT MAN 13 % (21-46); METAMYELOCYTE ABSOLUTE MAN 0.14 K/mm3 (0.00-0.00); METAMYELOCYTE PERCENT MAN 1 % (0-0); MONOCYTES ABSOLUTE MAN 1.18 K/mm3 (0.16-1.47); MONOCYTES PERCENT MAN 8 % (4-13); MYELOCYTE ABSOLUTE MAN 0.29 K/mm3 (0.00-0.00); MYELOCYTE PERCENT MAN 2 % (0-0); NEUTROPHILS ABSOLUTE MAN 11.29 K/mm3 (1.96-9.15); SEG NEUTROPHILS PERCENT MAN 66 % (41-73); TOTAL CELLS COUNTED 100
--- NOTE | 2021-10-14 05:25 | NUR ---
SHIFT SUMMARY PT CONTINUES TO HAVE ABD PAIN. MEDICATING PER EMAR EVERY 2-3 HOURS. PT WAS RECEIVING HEPARIN PREVIOUSLY, BUT WAS CHANGED TO LOVENOX, TO START LAST NIGHT. PT GIVEN LOVENOX SHOT AND BEGAN COMPLAINING OF EXTREME PAIN SHORTLY AFTER. THERE WAS NO SWELLING TO ABD NOTED, BUT PT GIVEN AN ICE PACK. CALLED THE PHYSICIAN AND WAS GIVEN A ONE TIME BREAKTHROUGH DOSE OF MORPHINE. PT HAS FELT BETTER SINCE THEN AND STILL NO SWELLING NOTED TO SITE OF INJECTION. PT HAS CALL LIGHT WITHIN REACH.
--- NOTE | 2021-10-14 19:58 | NUR ---
SHIFT SUMMARY PTN A&O X4, STAND-BY ASSIST. IV TO RIGHT AC. PTN WITH UMANA CATHETER. CONTINUED RIGHT LOWER ABDOMINAL PAIN THIS SHIFT 7-8/10 AT WORST, 5/10 AT BEST. MEDICATED PER EMAR WITH SOME RELIEF. PTN ON CLEAR LIQUIDS. CONTACT PRECAUTIONS IN PLACE FOR C DIFF. CONTINUE TO MONITOR.
[2021-10-15 05:04] LABS: BASOPHILS ABSOLUTE AUTO 0.05 K/mm3 (0.00-0.23); BASOPHILS PERCENT AUTO 0 % (0-2); EOSINOPHILS ABSOLUTE AUTO 0.08 K/mm3 (0.00-0.68); EOSINOPHILS PERCENT AUTO 1 % (0-6); Hemoglobin 11.5 g/dL (13.5-17.5); IMMATURE GRAN ABSOLUTE AUTO 0.44 K/mm3 (0.00-0.10); IMMATURE GRAN PERCENT AUTO 3 % (0-1); LYMPHOCYTES ABSOLUTE AUTO 2.37 K/mm3 (0.84-5.20); LYMPHOCYTES PERCENT AUTO 17 % (21-46); MONOCYTES ABSOLUTE AUTO 1.01 K/mm3 (0.16-1.47); MONOCYTES PERCENT AUTO 7 % (4-13); Mean Corpuscular HGB 31.7 pg (26.0-34.0); Mean Corpuscular HGB Conc 33.8 g/dL (31.5-36.5); Mean Corpuscular Volume 94 fL (80-100); Mean Platelet Volume 8.8 fL (9.1-12.4); NEUTROPHILS ABSOLUTE AUTO 10.26 K/mm3 (1.96-9.15); NEUTROPHILS PERCENT AUTO 72 % (41-73); Platelet Count 257 K/mm3 (150-400); RDW Coefficient Variation 13.5 % (11.7-14.2); RDW Standard Deviation 46.5 fL (35.1-46.3); Red Blood Cell Count 3.63 M/mm3 (4.30-5.90); White Blood Cell Count 14.21 K/mm3 (4.00-11.30)
--- NOTE | 2021-10-15 05:16 | NUR ---
SHIFT SUMMARY PT CONTINUES TO BE PAINFUL. MEDICATING PER EMAR EVERY 2-3 HOURS FOR PAIN. PT IS ABLE TO SLEEP FOR PERIODS OF TIME BETWEEN MEDICATION. STOOL SAMPLE COLLECTED AND SENT. PT HAD FORMED STOOLS EARLIER IN THE DAY, BUT IS NOW HAVING LIQUID DIARRHEA. CALL LIGHT WITHIN REACH.
[2021-10-15 05:38] LABS: Albumin, Blood 2.1 g/dL (3.4-5.0); Albumin/Globulin Ratio 0.6 (0.8-1.8); Bilirubin, Total 0.4 mg/dL (0.1-1.0); Bun/Creatinine Ratio 11.8 (12.0-20.0); C-REACTIVE PROTEIN, EXT RANGE 4.55 mg/dL (0.000-0.300); Creatinine, Blood 0.76 mg/dL (0.60-1.20); Globulin, Blood 3.7 g/dL (2.2-4.0); Magnesium, Blood 1.5 mg/dL (1.6-2.4); Phosphorus, Blood 2.9 mg/dL (2.5-4.9); Potassium, Blood 3.5 mmol/L (3.5-5.5); Total Protein, Blood 5.8 g/dL (6.4-8.2)
[2021-10-15 08:34] LABS: C DIFFICILE DNA Duplicate (Negative)
--- NOTE | 2021-10-15 17:32 | NUR ---
SHIFT SUMMARY A&O X 4. VSS. MEDICATED FOR PAIN THROUGHOUT SHIFT PER MD ORDERS. (SEE EMAR). F/C DC'D PER MD ORDER AND EMPYIED OF 1000MLS OF DARK YELLOW URINE WITH SEDIMENT. PT INSTRUCTED TO LET RN KNOW IF HE HAD DIFFICULTY UNRINATING AFTER F/C REMOVED. R SUBCLAVIAN CENTRAL LINE DC'D PER MD ORDER WITH CATH TIP INTACT. NO BLEEDING OR DIFFICULTY BREATHING AFTER REMOVED. NO REDNESS OR SWELLING NOTED AT SITE. TELE DC'D PER MD ORDER. PT TRANSITIONED TO ORAL PAIN MEDS AND IS TOLERATING WELL. HE REPORTS HE'S HAD 3 BM's TODAY, 1 THAT HE REPORTS WAS SOMEWHAT NORMAL THEN 2 THAT WERE LIQUIDY. HE HAS ALSO URINATED WITHOUT DIFFICULTY TWICE SINCE F/C REMOVAL. HE ALSO STATES HE'S BEGINNING TO FEEL BETTER. IS ANTICIPATING THE DAY HE CAN GO HOME.
--- NOTE | 2021-10-16 04:19 | NUR ---
SHIFT SUMMARY NO ACUTE CHANGES TO PT CONDITION. PT HAS HAD SOME ABD PAIN THROUGHOUT THE NIGHT. PT MEDICATED WITH NORCO PER EMAR. PT PLEASANT AND COOPERATIVE. CALL LIGHT WITHIN PT REACH.
[2021-10-16 05:20] LABS: BASOPHILS ABSOLUTE AUTO 0.05 K/mm3 (0.00-0.23); BASOPHILS PERCENT AUTO 0 % (0-2); EOSINOPHILS ABSOLUTE AUTO 0.12 K/mm3 (0.00-0.68); EOSINOPHILS PERCENT AUTO 1 % (0-6); Hematocrit 32.7 % (37.0-53.0); Hemoglobin 11.1 g/dL (13.5-17.5); IMMATURE GRAN ABSOLUTE AUTO 0.24 K/mm3 (0.00-0.10); IMMATURE GRAN PERCENT AUTO 2 % (0-1); LYMPHOCYTES ABSOLUTE AUTO 1.93 K/mm3 (0.84-5.20); LYMPHOCYTES PERCENT AUTO 14 % (21-46); MONOCYTES ABSOLUTE AUTO 1.12 K/mm3 (0.16-1.47); MONOCYTES PERCENT AUTO 8 % (4-13); Mean Corpuscular HGB 32.2 pg (26.0-34.0); Mean Corpuscular HGB Conc 33.9 g/dL (31.5-36.5); Mean Corpuscular Volume 95 fL (80-100); Mean Platelet Volume 9.3 fL (9.1-12.4); NEUTROPHILS ABSOLUTE AUTO 10.77 K/mm3 (1.96-9.15); NEUTROPHILS PERCENT AUTO 76 % (41-73); Platelet Count 256 K/mm3 (150-400); RDW Coefficient Variation 13.8 % (11.7-14.2); RDW Standard Deviation 48.2 fL (35.1-46.3); Red Blood Cell Count 3.45 M/mm3 (4.30-5.90); White Blood Cell Count 14.23 K/mm3 (4.00-11.30)
[2021-10-16 05:47] LABS: Albumin, Blood 2.1 g/dL (3.4-5.0); Albumin/Globulin Ratio 0.6 (0.8-1.8); Bilirubin, Total 0.5 mg/dL (0.1-1.0); Bun/Creatinine Ratio 10.4 (12.0-20.0); Calcium, Blood 8.2 mg/dL (8.5-10.1); Creatinine, Blood 0.77 mg/dL (0.60-1.20); Globulin, Blood 3.6 g/dL (2.2-4.0); Magnesium, Blood 1.8 mg/dL (1.6-2.4); Potassium, Blood 3.7 mmol/L (3.5-5.5); Total Protein, Blood 5.7 g/dL (6.4-8.2)
[2021-10-16] MEDS ORDERED: Celexa20 MG PO (12:00)
[2021-10-16] MEDS ORDERED: PANT20 PO (12:02)
[2021-10-16] MEDS ORDERED: TAMS.4ER PO (12:03)
[2021-10-16] MEDS ORDERED: POTCHL20ER PO (12:03)
[2021-10-16] MEDS ORDERED: TRAZ100 PO (12:04)
[2021-10-16] MEDS ORDERED: VANCOCIN HCL250 MG PO (12:06)
[2021-10-16] MEDS ORDERED: VISBIOME 112.51 EACH PO (12:08)
--- NOTE | 2021-10-16 14:43 | NUR ---
LATE ENTRY/DC HOME 1330: WRITTEN & VERBAL DC INSTRUCTIONS GIVEN TO PT WITH GOOD UNDERSTANDING VERBALIZED BY PT. PIV DC'D WITH CATH TIP INTACT, NO REDNESS OR SWELLING NOTED AT SITE. ALL NEW SCRIPTS WERE FAXED TO [facility] PER PT REQUEST. PT'S SPOUSE HERE TO PROVIDE RIDE HOME.
== END 2021-10-16 13:20 | disposition home health service (06) | DRG 371 ==
LOC: ER 12:46 → PCU 16:07 → ICUE 16:07 → ICUW 16:07 → MEDS 16:07 → ICUE 18:53 → PCU 10-11 18:20 → MEDS 10-13 17:36
PROVIDERS: Hospitalist; Internal Medicine Nephrology; Student in an Organized Health Care Education/Training Program; ADMIT Internal Medicine
PROC: 02HV33Z Insertion of Infusion Device into Superior Vena Cava, Percutaneous Approach (ICD-10-PCS; principal; 2021-10-10)
PROC: 3E033XZ Introduction of Vasopressor into Peripheral Vein, Percutaneous Approach (ICD-10-PCS; 2021-10-10)
DX: A04.72 Enterocolitis due to Clostridium difficile, not specified as recurrent (principal); R57.1 Hypovolemic shock; K51.00 Ulcerative (chronic) pancolitis without complications; N17.9 Acute kidney failure, unspecified; M62.82 Rhabdomyolysis; E27.0 Other adrenocortical overactivity; N18.9 Chronic kidney disease, unspecified; D72.829 Elevated white blood cell count, unspecified; Z20.822 Contact with and (suspected) exposure to COVID-19; G40.909 Epilepsy, unspecified, not intractable, without status epilepticus; I12.9 Hypertensive chronic kidney disease with stage 1 through stage 4 chronic kidney disease, or unspecified chronic kidney disease; F29 Unspecified psychosis not due to a substance or known physiological condition; E86.0 Dehydration; D63.1 Anemia in chronic kidney disease; R73.9 Hyperglycemia, unspecified; N40.0 Benign prostatic hyperplasia without lower urinary tract symptoms; F32.A Depression, unspecified; E86.9 Volume depletion, unspecified; E83.39 Other disorders of phosphorus metabolism; E88.09 Other disorders of plasma-protein metabolism, not elsewhere classified; R68.0 Hypothermia, not associated with low environmental temperature; E78.00 Pure hypercholesterolemia, unspecified; F41.9 Anxiety disorder, unspecified; G47.00 Insomnia, unspecified; M54.40 Lumbago with sciatica, unspecified side; E87.6 Hypokalemia; E83.42 Hypomagnesemia; Z79.811 Long term (current) use of aromatase inhibitors; Z79.2 Long term (current) use of antibiotics; Z88.1 Allergy status to other antibiotic agents; Z79.02 Long term (current) use of antithrombotics/antiplatelets; Z79.899 Other long term (current) drug therapy
CPT/HCPCS: 0241U; 36415; 36556; 51702; 71045; 74177; 80053; 80069; 80202; 81001; 82010; 82530; 82533; 82550; 82553; 82803; 83605; 83735; 84100; 84443; 85014; 85018; 85025; 86140; 87040; 87086; 87324; 87507; 93005; 93010; 93306; 96365-59; 96366-59; 96368; 97110; 97112; 97116; 97162; 97530; 99291-25; A9270; C1751; C9113; J0692; J1644; J1650; J2270; J2405; J2543; J3370; J3475; J3480; J7030; J7050; J7060; J7070; Q9967

== ENCOUNTER 2021-10-29 21:59 | Emergency (ER) | payer MEDICARE, BC ==
[~2021-10-29] VITALS: Ht 172.7 cm; Wt 90.7 kg
[~2021-10-29 21:59] MED LIST changes: +CITALOPRAM HBR40 M8 PO; +Celexa20 MG PO; +LISINOPRIL-HCT1 EAC1 PO; +PANT20 PO; +POTCHL20ER PO; +VANCOCIN HCL250 MG PO; +VISBIOME 112.51 EACH PO
[2021-10-29 22:19] LABS: BASOPHILS ABSOLUTE AUTO 0.05 K/mm3 (0.00-0.23); BASOPHILS PERCENT AUTO 0 % (0-2); EOSINOPHILS ABSOLUTE AUTO 0.02 K/mm3 (0.00-0.68); EOSINOPHILS PERCENT AUTO 0 % (0-6); Hematocrit 31.9 % (37.0-53.0); Hemoglobin 10.9 g/dL (13.5-17.5); IMMATURE GRAN ABSOLUTE AUTO 0.09 K/mm3 (0.00-0.10); IMMATURE GRAN PERCENT AUTO 1 % (0-1); LYMPHOCYTES ABSOLUTE AUTO 1.24 K/mm3 (0.84-5.20); LYMPHOCYTES PERCENT AUTO 8 % (21-46); MONOCYTES ABSOLUTE AUTO 0.51 K/mm3 (0.16-1.47); MONOCYTES PERCENT AUTO 3 % (4-13); Mean Corpuscular HGB 31.1 pg (26.0-34.0); Mean Corpuscular HGB Conc 34.2 g/dL (31.5-36.5); Mean Corpuscular Volume 91 fL (80-100); Mean Platelet Volume 8.4 fL (9.1-12.4); NEUTROPHILS ABSOLUTE AUTO 14.04 K/mm3 (1.96-9.15); NEUTROPHILS PERCENT AUTO 88 % (41-73); Platelet Count 369 K/mm3 (150-400); RDW Coefficient Variation 13.2 % (11.7-14.2); RDW Standard Deviation 43.7 fL (35.1-46.3); White Blood Cell Count 15.95 K/mm3 (4.00-11.30)
[2021-10-29 22:37] LABS: Albumin, Blood 2.5 g/dL (3.4-5.0); Albumin/Globulin Ratio 0.6 (0.8-1.8); Bilirubin, Total 0.3 mg/dL (0.1-1.0); Bun/Creatinine Ratio 8.4 (12.0-20.0); Calcium, Blood 8.4 mg/dL (8.5-10.1); Creatinine, Blood 0.95 mg/dL (0.60-1.20); Potassium, Blood 3.4 mmol/L (3.5-5.5); Total Protein, Blood 6.5 g/dL (6.4-8.2)
[2021-10-30] MEDS ORDERED: Potassium Chlo20 ME1 PO (00:20)
[2021-10-30] MEDS ORDERED: TAMSULOSIN HCL0.4 M1 PO (00:20)
[2021-10-30] MEDS ORDERED: Vancocin HCl250 MG (00:20)
[2021-10-30] MEDS ORDERED: PANTOPRAZOLE SO PO (00:21)
[2021-10-30] MEDS ORDERED: FLAGYL500 M1 PO (01:22)
== END 2021-10-30 02:11 | disposition home or self-care (01) ==
LOC: ER 21:59
PROVIDERS: Emergency Medicine
DX: K52.9 Noninfective gastroenteritis and colitis, unspecified (principal); I10 Essential (primary) hypertension; E78.5 Hyperlipidemia, unspecified; Z79.899 Other long term (current) drug therapy; Z88.1 Allergy status to other antibiotic agents
CPT/HCPCS: 74177; 80053; 83690; 85025; 93005; 93010; 96374-59; 96375; 99285-25; A9270; J1170; J1885; J2405; J7120; Q9967